=== PATIENT | male | born 1965 | race African-American/Black ===

== ENCOUNTER 2018-11-14 02:02 | Emergency (ER) | payer OTHER ==
[2018-11-14 02:22] VITALS: BP 135/89
--- NOTE | 2018-11-14 03:46 | ER Document Report ---
ED General - General Chief Complaint: Abdominal Pain Stated Complaint: BACK PAIN Time Seen by Provider: 11/14/18 03:25 Notes: 53-year-old male brought in by EMS for evaluation of "hernia". Patient reportedly has chronic left inguinal hernia and periumbilical hernia. Was trying to climb out of the dumpster and the hernias "popped back out". States that he has been seen in [facility] and is supposed to have surgery but patient states that he "wants the surgery tonight". Of note it is currently 3 AM. Patient denies any other injuries. There is a strong smell of alcohol on his breath. TRAVEL OUTSIDE OF THE [place] IN LAST 30 DAYS: No - HPI Onset: Just prior to arrival Associated symptoms: None - Related Data Allergies/Adverse Reactions: No Known Allergies Allergy (Unverified 11/14/18 02:17) Past Medical History - General Information source: Patient, Emergency Med Personnel - Social History Smoking Status: Current Every Day Smoker Family History: Reviewed & Not Pertinent - Medical History Medical History: Other - Degenerative disc disease, umbilical hernia, inguinal hernia Review of Systems - Review of Systems Notes: Constitutional: denies: Chills, Diaphoresis, Fever, Malaise, Weakness EENT: denies: Eye discharge, Blurred vision, Tearing, Double vision, Nose congestion, Nose discharge, Throat swelling, Mouth pain Cardiovascular: denies: Palpitations, Heart racing, Orthopnea, Dyspnea, Chest pain Respiratory: denies: Cough, Hurts to breathe, Wheezing, Shortness of breath Gastrointestinal: denies: Abdominal pain, Diarrhea, Nausea, Vomiting, Black stools, bright red blood in stool . Complaining of hernias Genitourinary: denies: Burning, Dysuria, Discharge, Frequency, Flank pain, Hematuria Musculoskeletal: denies: Joint pain, Joint swelling, Muscle pain, Muscle stiffness, back pain Hematologic/Lymphatic: denies: Anemia, Easy bleeding, Easy bruising, Blood clots Neurological/Psychological: denies: Confusion, Dementia, Depression, Loss of consciousness Skin: No lesions, no masses, no skin breakdown, no abscesses Physical Exam - Vital signs Vitals: Temp Pulse Resp BP Pulse Ox 98 F 79 16 135/89 H 95 11/14/18 02:21 11/14/18 02:21 11/14/18 02:21 11/14/18 02:21 11/14/18 02:21 Interpretation: Normal - General General appearance: Appears well, Alert Notes: Patient seems intoxicated. Has strong smell of alcohol on the breath. - HEENT Head: Normocephalic, Atraumatic Eyes: Normal Pupils: PERRL - Respiratory Respiratory status: No respiratory distress Chest status: Nontender Breath sounds: Normal Chest palpation: Normal - Cardiovascular Rhythm: Regular Heart sounds: Normal auscultation Murmur: No - Abdominal Inspection: Normal Distension: No distension Bowel sounds: Normal Tenderness: Tender - Umbilical and inguinal tenderness hernias. Organomegaly: No organomegaly Notes: Patient has easily reducible umbilical hernia. Patient has an easily reducible left inguinal hernia. - Back Back: Normal, Nontender - Extremities General upper extremity: Normal inspection, Nontender, Normal color, Normal ROM, Normal temperature General lower extremity: Normal inspection, Nontender, Normal color, Normal ROM, Normal temperature, Normal weight bearing. No: Gordy's sign - Neurological Neuro grossly intact: Yes Cognition: Normal Orientation: AAOx4 Dimas Coma Scale Eye Opening: Spontaneous [place] Coma Scale Verbal: Oriented [place] Coma Scale Motor: Obeys Commands Dimas Coma Scale Total: 15 Speech: Normal Motor strength normal: LUE, RUE, LLE, RLE Sensory: Normal - Psychological Associated symptoms: Normal affect, Normal mood - Skin Skin Temperature: Warm Skin Moisture: Dry Skin Color: Normal Course - Re-evaluation Re-evalutation: 11/14/18 03:43 I was able to easily reduce the umbilical and left inguinal hernia without difficulty. Patient states that he wants surgery on these hernias now. I have explained to him that he has no surgical emergency and that there is no way I am going to call his surgeon at 3:45 in the morning to have a chronic, stable, nonemergent hernia repair performed. At this time I find nothing else to do for this gentleman. Patient has a bottle of pain medication in his pocket. I am going to discharge him at this time - Vital Signs Vital signs: Temp Pulse Resp BP Pulse Ox 98 F 79 16 135/89 H 95 11/14/18 02:21 11/14/18 02:21 11/14/18 02:21 11/14/18 02:21 11/14/18 02:21 Discharge - Discharge Clinical Impression: Reducible left inguinal hernia Umbilical hernia Qualifiers: Obstruction and gangrene presence: without obstruction or gangrene Qualified Code(s): K42.9 - Umbilical hernia without obstruction or gangrene Condition: Good Disposition: HOME, SELF-CARE Instructions: Hernia ([facility]), Umbilical Hernia ([facility]) Additional Instructions: You have a hernia but that was easily reduced. On occasions, these hernias can become incarcerated and strangulated which then does become a surgical emergency however at this time there does not appear to be a surgical emergency. This is an outpatient follow-up and scheduled surgery. Please make an appointment with the surgeon of your choice to have this hernia repaired. Referrals: ASHLEY SEARS MD [ACTIVE STAFF] - Follow up in 1 week
== END 2018-11-14 04:34 | disposition home or self-care (01) ==
LOC: ER 02:02
DX: K40.90 Unilateral inguinal hernia, without obstruction or gangrene, not specified as recurrent (principal); K42.9 Umbilical hernia without obstruction or gangrene; F17.200 Nicotine dependence, unspecified, uncomplicated
CPT/HCPCS: 99284

== ENCOUNTER 2018-11-30 05:38 | Emergency (ER) | payer OTHER ==
--- NOTE | 2018-11-30 09:27 | ER Document Report ---
ED Extremity Problem, Lower - General Chief Complaint: Leg Pain Stated Complaint: LEG SPASM/PAIN,HERNIA PAIN,BACK PAIN Time Seen by Provider: 11/30/18 07:51 Mode of Arrival: Ambulatory Information source: Patient Notes: Patient is a 53-year-old male with a history of chronic back pain that gives him chronic muscle spasms down his legs, patient also just moved to the area and is out of his chronic narcotic pain medication. Patient states he was on oxycodone and "pain patches" by pain management and [facility] where he recently lived. Patient moved here without a supply of his pain medication and has not yet gotten into pain management here in this area, of note [facility] is only about an hour and a half away. Patient also presents with umbilical hernia and inguinal hernia chronic in nature that are painful and pop out when he use the bathroom but go back in. He denies any change with this. He states he is here to get surgery right now. Patient was seen here recently for the same exact complaint. He denies any change in bowel movements. His history is quite difficult as he goes on to talk about his girlfriend and the house they moved in, giving the exact address and her name, asking me if I would like paperwork from all of his doctors, talking about how his hernia is compared to breast cancer, saying how he had an MRI for his hernias at [facility] and they told him he needed immediate surgery but then discharged him without follow-up. This was over a month ago. TRAVEL OUTSIDE OF THE [place] IN LAST 30 DAYS: No - Related Data Allergies/Adverse Reactions: No Known Allergies Allergy (Verified 11/30/18 06:03) Past Medical History - General Information source: Patient - Social History Smoking Status: Unknown if Ever Smoked Family History: Reviewed & Not Pertinent Patient has suicidal ideation: No Patient has homicidal ideation: No Renal/ Medical History: Denies: Hx Peritoneal Dialysis Review of Systems - Review of Systems Constitutional: No symptoms reported EENT: No symptoms reported Cardiovascular: No symptoms reported Respiratory: No symptoms reported Gastrointestinal: See HPI Genitourinary: No symptoms reported Male Genitourinary: No symptoms reported Musculoskeletal: See HPI Skin: No symptoms reported Hematologic/Lymphatic: No symptoms reported Neurological/Psychological: No symptoms reported Physical Exam - Vital signs Vitals: Temp Pulse Resp BP Pulse Ox 97.6 F 56 L 18 125/92 H 97 11/30/18 06:08 11/30/18 06:08 11/30/18 06:08 11/30/18 06:08 11/30/18 06:08 - Notes Notes: PHYSICAL EXAMINATION: GENERAL: Well-appearing and in no acute distress. HEAD: Atraumatic, normocephalic. EYES: Pupils equal round and reactive to light, extraocular movements intact, sclera anicteric, conjunctiva are normal. ENT: ear canals without erythema or foreign body, TMs pearly mejia with good bony landmarks, nares patent, oropharynx clear without exudates. Moist mucous membranes. NECK: Normal range of motion, supple without lymphadenopathy LUNGS: CTAB and equal. No wheezes rales or rhonchi. HEART: Regular rate and rhythm without murmurs ABDOMEN: Soft, umbilical hernia that reduces easily, no inguinal hernia appreciated today, no tenderness. No guarding, no rebound BACK: no vertebral tenderness, normal ROM GI/: no CVA tenderness EXTREMITIES: Normal range of motion, no pitting edema. No cyanosis. NEUROLOGICAL: Cranial nerves grossly intact. Normal sensory/motor exams. PSYCH: Normal mood, normal affect. SKIN: Warm, Dry, normal turgor, no rashes or lesions noted Course - Re-evaluation Re-evalutation: 11/30/18 09:31 I did advise him that this is an emergency department and if nothing has changed we do not treat chronic issues here. Patient will be given a general surgeon and primary care follow-up. I will not prescribe him narcotics today as it does appear that patient is making a pattern of coming to the emergency department for his chronic issues and demanding immediate surgery, not following up with primary care provider and then asking for narcotics. He has just recently moved here and has been here twice in 2 weeks with the same complaint. 11/30/18 09:31 - Vital Signs Vital signs: Temp Pulse Resp BP Pulse Ox 97.6 F 56 L 18 125/92 H 97 11/30/18 06:08 11/30/18 06:08 11/30/18 06:08 11/30/18 06:08 11/30/18 06:08 Discharge - Discharge Clinical Impression: Umbilical hernia Qualifiers: Obstruction and gangrene presence: without obstruction or gangrene Qualified Code(s): K42.9 - Umbilical hernia without obstruction or gangrene Chronic back pain Qualifiers: Back pain location: low back pain Back pain laterality: bilateral Sciatica presence: with sciatica Sciatica laterality: bilateral sciatica Qualified Code(s): M54.42 - Lumbago with sciatica, left side Condition: Stable Disposition: HOME, SELF-CARE Additional Instructions: Return immediately for any new or worsening symptoms. Follow up with primary care provider, call tomorrow to make followup appointment. This is an emergency department, if you have your hernias pop out and they will not go back in and are exquisitely more painful than they have ever been, that is what constitutes an emergency hernia surgery. Otherwise you need to follow- up with your general surgeon, I have given you a referral for this on this paperwork to have the hernia surgery outpatient. We do not refill chronic pain medication, you will not get chronic pain medication here in the emergency department in narcotic form. You need to schedule an appointment with a primary care provider or pain management as soon as possible if you would like to stay on your medication. For future reference when you move, please have a supply of your chronic pain medication so that this does not occur in the future. Prescriptions: Cyclobenzaprine HCl [Flexeril 10 mg Tablet] 10 mg PO TID PRN #15 tablet PRN Reason: Lidocaine [Lidoderm 5% (700 mg) Transdermal Patch] 1 patch TP DAILY #14 adh..patch Referrals: LOLITA GARCIA MD [SWAPNIL URIAS] - Follow up as needed DARRIN HODGE DO [NO LOCAL MD] - Follow up as needed
[2018-11-30 09:46] VITALS: BP 148/86
== END 2018-11-30 09:47 | disposition home or self-care (01) ==
LOC: ER 05:38
DX: M54.42 Lumbago with sciatica, left side (principal); K42.9 Umbilical hernia without obstruction or gangrene; G89.29 Other chronic pain
CPT/HCPCS: 96361; 99283